=== PATIENT | female | born 1965 | race Caucasian/White ===

== ENCOUNTER 2023-05-04 22:42 | Inpatient (IN) | payer OTHER ==
[2023-05-04] MEDS ORDERED: TAMSULOSIN HCL 0.4 MG CAP ONE (23:29)
[2023-05-04] MEDS ORDERED: ONDANSETRON 4 MG/2 ML VIAL ONE (23:30)
[2023-05-04] MEDS: morphine CARPU-JECT 2 MG/1 ML DISP.SYRIN IVPUSH ONE (23:40)
[2023-05-04] MEDS: ONDANSETRON 4 MG/2 ML VIAL IVPUSH ONE (23:40)
[2023-05-04 23:51] LABS: BASO % 0.5 % (0-2.0); HEMATOCRIT 38.2 % (32.4-45.2); HEMOGLOBIN 13.3 GM/dL (10.7-15.3); MCH 28.8 pg (25.7-33.7); MCHC 34.7 g/dl (32.0-36.0); MEAN CELL VOLUME 83.1 fl (80-96); MEAN PLT VOLUME 8.4 fl (7.5-11.1); NEUT % 64.5 % (42.8-82.8); PLATELET COUNT 254 10^3/uL (134-434); RDW 13.3 % (11.6-15.6); WHITE BLOOD COUNT 6.7 K/mm3 (4.0-10.0)
[2023-05-04 23:58] LABS: INR 1.05 (0.83-1.09); PROTHROMBIN TIME (PATIENT) 12.2 SEC (9.7-13.0)
[2023-05-05 00:18] LABS: POTASSIUM 4.4 mmol/L (3.5-5.1)
[2023-05-05 00:20] LABS: EPI CELLS 4 /uL (0-25.1); HYALINE CASTS 0 /uL (0-3.1); PH,URINE 6.5 (5.0-8.0); URINE APPEARANCE CLEAR; URINE BACTERIA 13 /uL (0-1359); URINE BILIRUBIN NEGATIVE (NEGATIVE); URINE COLOR YELLOW; URINE GLUCOSE (UA) NEGATIVE (NEGATIVE); URINE KETONE NEGATIVE (NEGATIVE); URINE LEUK ESTERASE NEGATIVE (NEGATIVE); URINE NITRITE NEGATIVE (NEGATIVE); URINE PROTEIN NEGATIVE (NEGATIVE); URINE RBC 595 /uL (0-23.9); URINE UROBILINOGEN 0.2 mg/dL (0.2-1.0); URINE WBC 5 /uL (0-25.8)
[2023-05-05 00:20] LABS: CALCIUM 9.4 mg/dL (8.5-10.1)
[2023-05-05 00:21] LABS: ALBUMIN 3.9 g/dl (3.4-5.0); BLOOD UREA NITROGEN 15.5 mg/dL (7-18)
[2023-05-05 00:24] LABS: CREATININE 0.8 mg/dL (0.55-1.3)
[2023-05-05 00:25] LABS: BILIRUBIN,TOTAL 0.2 mg/dL (0.2-1); TOT PROT 7.2 g/dl (6.4-8.2)
[2023-05-05] MEDS ORDERED: KETOROLAC TROMETHAMINE 30 MG/1 ML VIAL ONE ×2 (00:34→12:30)
[2023-05-05] MEDS ORDERED: METOCLOPRAMIDE HCL INJECTION 10 MG/2 ML VIAL ONE (00:35)
[2023-05-05] MEDS: TAMSULOSIN HCL 0.4 MG CAP PO ONE ×2 (00:50→19:02)
[2023-05-05] MEDS: METOCLOPRAMIDE HCL INJECTION 10 MG/2 ML VIAL IVPB ONE (00:50)
[2023-05-05] MEDS: SODIUM CHLORIDE 0.9% 500 ML INFUS.BAG IV ONE (00:50)
[2023-05-05] MEDS: KETOROLAC TROMETHAMINE 30 MG/1 ML VIAL IVPUSH ONE ×3 (00:50→11:52)
[2023-05-05] MEDS: morphine SULFATE 4 MG/ML VIAL IVPUSH ONE (03:19)
[2023-05-05] MEDS ORDERED: ONDANSETRON 4 MG/2 ML VIAL IVPUSH PRN ×4 (03:27→12:37)
[2023-05-05] MEDS ORDERED: ACETAMINOPHEN 1000 MG/100 ML BAG IVPB PRN ×2 (03:29→12:37)
[2023-05-05] MEDS ORDERED: KETOROLAC TROMETHAMINE 15 MG/ML VIAL IVPUSH PRN ×2 (03:32→12:37)
[2023-05-05] MEDS: SODIUM CHLORIDE 1,000 ML IV STA (05:24)
[2023-05-05] MEDS: TAMSULOSIN HCL 0.4 MG CAP PO SCH (05:36)
[2023-05-05 05:38] LABS: CALCIUM 8.9 mg/dL (8.5-10.1)
[2023-05-05 05:39] LABS: BLOOD UREA NITROGEN 15.5 mg/dL (7-18); MAGNESIUM 2.1 mg/dL (1.8-2.4)
[2023-05-05 05:42] LABS: CREATININE 1.1 mg/dL (0.55-1.3); PHOSPHOROUS 3.4 mg/dL (2.5-4.9)
[2023-05-05 05:43] LABS: TOT PROT 7.1 g/dl (6.4-8.2)
[2023-05-05 05:44] LABS: BILIRUBIN,TOTAL 0.3 mg/dL (0.2-1)
[2023-05-05 06:16] LABS: HEMATOCRIT 36.8 % (32.4-45.2); HEMOGLOBIN 12.8 GM/dL (10.7-15.3); MCH 28.9 pg (25.7-33.7); MCHC 34.9 g/dl (32.0-36.0); MEAN CELL VOLUME 82.7 fl (80-96); MEAN PLT VOLUME 8.7 fl (7.5-11.1); PLATELET COUNT 240 10^3/uL (134-434); RBC 4.45 M/mm3 (3.60-5.2); RDW 13.1 % (11.6-15.6); WHITE BLOOD COUNT 9.1 K/mm3 (4.0-10.0)
[2023-05-05] MEDS: SODIUM CHLORIDE 1,000 ML IV SCH ×2 (08:12→14:10)
[2023-05-05 09:16] VITALS: BMI 33.5
[2023-05-05] MEDS ORDERED: DEXAMETHASONE SOD PHOSPHATE 4 MG/1 ML VIAL ONE (11:37)
[2023-05-05] MEDS ORDERED: PROPOFOL 20 ML ONE (11:37)
[2023-05-05] MEDS ORDERED: MIDAZOLAM HCL 2 MG/2 ML SINGLE DOSE VIAL ONE (11:37)
[2023-05-05] MEDS ORDERED: ONDANSETRON 4 MG/2 ML VIAL ONE (11:37)
[2023-05-05] MEDS ORDERED: PROMETHAZINE HCL 25 MG/1 ML VIAL IVPB PRN ×2 (12:20→12:37)
[2023-05-05] MEDS ORDERED: LACTATED RINGERS SOLUTION 1,000 ML IV SCH ×2 (12:30→12:37)
[2023-05-05] MEDS ORDERED: ACETAMINOPHEN INJECTION 100 ML IVPB ONE (12:30)
[2023-05-05 14:13] VITALS: TEMP 98.2
[2023-05-05 14:45] VITALS: RESP 18
[2023-05-05] MEDS: ACETAMINOPHEN 500 MG TABLET (FP) PO ONE (19:23)
[2023-05-05 19:27] VITALS: BP 101/62; PULSE 80
[2023-05-06] MEDS ORDERED: TAMSULOSIN HCL 0.4 MG CAP PO SCH ×2 (08:30)
== END 2023-05-05 20:30 | disposition home or self-care (01) | DRG 446 ==
LOC: JER 22:42 → JERBED 05-05 02:46 → J5S 05-05 08:39
PROVIDERS: ADMIT Internal Medicine; ATTEND Nurse Practitioner Family
PROC: BT1DZZZ Fluoroscopy of Right Kidney, Ureter and Bladder (ICD-10-PCS; 2023-05-05)
PROC: 0TC68ZZ Extirpation of Matter from Right Ureter, Via Natural or Artificial Opening Endoscopic (ICD-10-PCS; principal; 2023-05-05 11:00)
PROC: 0T768DZ Dilation of Right Ureter with Intraluminal Device, Via Natural or Artificial Opening Endoscopic (ICD-10-PCS; 2023-05-05 11:00)
DX: N13.2 Hydronephrosis with renal and ureteral calculous obstruction (principal); D49.7 Neoplasm of unspecified behavior of endocrine glands and other parts of nervous system
CPT/HCPCS: 36415; 74176-TC; 76000-TC-FY; 80053; 81003; 83735; 84100; 85025; 85027; 85610; 86850; 86900; 86901; 87040; 87086; 93005; 93010; 94760; 99285-25; C2617; J0131